=== PATIENT | male | born 1955 | race Caucasian/White ===

== ENCOUNTER 2016-07-31 09:25 | Emergency (ER) | payer OTHER, MEDICAID ==
[~2016-07-31] VITALS: Ht 177.8 cm; Wt 88.0 kg
[~2016-07-31 09:25] MED LIST: AMLO2.5T PO; ATOR10TA15 PO; DILT31TA PO; LOSA25TA PO; TRAM50TA PO
[2016-07-31 09:31] VITALS: BP 158/95; PULSE 91; RESP 16; TEMP 98.7; O2SAT 95
[2016-07-31] MEDS ORDERED: CARV12.52 PO (09:57)
[2016-07-31] MEDS ORDERED: MORPHINE SULFATE 4 MG/ML INJ IM ONE (10:15)
[2016-07-31] MEDS ORDERED: LORazepam 2 MG/ML VIAL IM ONE (10:15)
[2016-07-31] MEDS ORDERED: PRED10PA2 PO (10:16)
--- NOTE | 2016-07-31 10:16 | PD ---
HPI . Diffuse chronic pain Chief Complaint: Back/ Neck Pain or Injury Time Seen by Provider: 09:50 Travel History International Travel<30 days: No Contact w/Intl Traveler<30days: No Traveled to known affect area: No History of Present Illness HPI Patient presents with ongoing neck, back, hip, knee and hand pain. Patient reports that he is followed both by his primary care physician and by the pain clinic for same. He states that he was seen in the pain clinic sometime after May 25 and given some injections. He states that he is worse rather than better. He states that he called them to report ongoing and worsening pain and that they instructed him to come to the emergency department for treatment. He denies any acute injury and he denies any acutely worsening symptoms. He does not complain of incontinence or radicular type pain. He has not been running fevers. Patient reports that he takes tramadol 50 mg twice a day for pain and has been taking this for about 30 years. He states that he has been told not to take nonsteroidal anti-inflammatory agents because of his age. [facility] Past Medical History Anemia: Yes Arthritis: Yes Asthma: No Autoimmune Disease: No Blood Disorders: No Anxiety: No Depression: Yes Heart Rhythm Problems: No Cardiovascular Problems: No High Cholesterol: Yes Chemotherapy: No Chest Pain: No Congestive Heart Failure: No COPD: No Cerebrovascular Accident: No Dementia: Yes Diabetes: No Diminished Hearing: No Gastrointestinal Disorders: No GERD: No Glaucoma: No Headaches: No Hepatitis: No Hiatal Hernia: No Hypertension: Yes Kidney Stones: No Musculoskeletal: Yes (sciatica) Neurologic: No Psychiatric: Yes (ETOH ABUSE, DEPRESSION ( by hx )) Reproductive: No Respiratory: No Immunizations Current: Yes Myocardial Infarction: No Radiation Therapy: No Renal Failure: No Seizures: No Sickle Cell Disease: No Sleep Apnea: No Thyroid Disease: No Triglycerides - High: Yes Ulcer: No Tetanus Vaccination: > 5 Years Past Surgical History Abdominal Surgery: No AICD: No Cardiac Surgery: No Ear Surgery: No Endocrine Surgery: No Eye Surgery: No Genitourinary Surgery: No Gynecologic Surgery: No Neurologic Surgery: No Oral Surgery: Yes Pacemaker: No Thoracic Surgery: No Other Surgery: No Social History Alcohol Use: Yes (LIQUOR, SEVERAL DAYS/WEEK) Tobacco Use: No (QUIT 2010) Substance Use: No (HX OPIATES, etoh by hx ) Allergies-Medications (Allergen,Severity, Reaction): Coded Allergies: Aspirin (Verified Adverse Reaction, Severe, gi upset, 07/31/16) Daypro (Verified Adverse Reaction, Severe, gi upset, 07/31/16) Reported Meds & Prescriptions Reported Meds & Active Scripts Active Prednisone (48) 10 mg tab Dose Pack (Prednisone) 10 Mg Dspk 10 Mg PO DIRECTED Reported Carvedilol 12.5 Mg Tab 12.5 Mg PO BID Atorvastatin (Atorvastatin Calcium) 10 Mg Tab 40 Mg PO HS Tramadol (Tramadol HCl) 50 Mg Tab 50 Mg PO Q6H PRN Losartan (Losartan Potassium) 25 Mg Tab 12.5 Mg PO DAILY Amlodipine (Amlodipine Besylate) 2.5 Mg Tab 2.5 Mg PO DAILY Review of Systems Except as stated in HPI: all other systems reviewed are Neg Musculoskeletal: Positive: Myalgias, Arthralgias, Limited ROM, Cramping Neurologic: No: Weakness, Paresthesia, Incontinence Physical Exam Narrative GENERAL: This is a 60-year-old man who appears his stated age. He appears to be moving his arms and legs without much difficulty. SKIN: Warm and dry. HEAD: Atraumatic. Normocephalic. EYES: Pupils equal and round. ENT: No nasal bleeding or discharge. Mucous membranes pink and moist. NECK: Trachea midline. CARDIOVASCULAR: Regular rate and rhythm. RESPIRATORY: No accessory muscle use. GASTROINTESTINAL: Abdomen soft, non-tender, nondistended. MUSCULOSKELETAL: No obvious deformities. No edema. Diffuse tenderness to palpation of his upper and lower back. Tenderness in his hips and knees. Tender in his hands. He has no redness or warmth or swelling of any of his joints. NEUROLOGICAL: Awake and alert. No obvious cranial nerve deficits. Motor grossly within normal limits. Normal speech. PSYCHIATRIC: Appropriate mood and affect; insight and judgment normal. Data Data Last Documented VS Vital Signs Date Time Temp Pulse Resp B/P Pulse Ox O2 Delivery O2 Flow Rate FiO2 07/31/16 09:31 98.7 91 16 158/95 95 Orders Morphine Inj (Morphine Inj) (07/31/16 10:15) Lorazepam Inj (Ativan Inj) (07/31/16 10:15) [facility] Medical Decision Making Medical Screen Exam Complete: Yes Emergency Medical Condition: Yes Medical Record Reviewed: Yes (the patient was seen here on May 25 and diagnosed with lumbar radiculopathy. He was treated with tramadol. The patient has also been seen here in the past for alcohol abuse and opiate abuse.) Differential Diagnosis My differential diagnosis of chronic pain includes but is not limited to arthritis, lumbar stenosis, degenerative disc disease, connective tissue disorder, malingering, drug-seeking. Narrative Course Patient presents for treatment of chronic pain. He has no worrisome symptoms for an acute disorder such as epidural abscess, septic arthritis, cauda equina. I will give him a single dose of morphine and Ativan here and discharge him on prednisone. He should follow up with his primary care provider or the pain clinic for ongoing treatment of his chronic pain. Diagnosis Primary Impression: Chronic pain Qualified Code: G89.4 - Chronic pain syndrome Patient Instructions: Chronic Back Pain (ED), General Instructions, Narcotic given in the ED Additional Instructions: See your primary care provider or pain clinic for ongoing treatment of your chronic pain. Med/Other Pt SpecificInfo: Prescription(s) given Scripts Prednisone (48) 10 mg tab Dose Pack 10 Mg Dspk10 Mg PO DIRECTED #1 DSPK Ref 0 Prov:Sophie Augustine MD 07/31/16 Disposition: 01 DISCHARGE HOME Condition: Stable Sophie Augustine MD Jul 31, 2016 10:16
[2016-07-31 10:46] VITALS: BP 142/90
== END 2016-07-31 10:48 | disposition home or self-care (01) ==
LOC: PHED 09:25
DX: G89.4 Chronic pain syndrome (principal); D64.9 Anemia, unspecified; M19.90 Unspecified osteoarthritis, unspecified site; F32.9 Major depressive disorder, single episode, unspecified; E78.00 Pure hypercholesterolemia, unspecified; F03.90 Unspecified dementia, unspecified severity, without behavioral disturbance, psychotic disturbance, mood disturbance, and anxiety; I10 Essential (primary) hypertension; F10.20 Alcohol dependence, uncomplicated; F19.21 Other psychoactive substance dependence, in remission; Z87.891 Personal history of nicotine dependence
CPT/HCPCS: 96372; 99283; J2060; J2270

== ENCOUNTER 2016-08-16 12:56 | Emergency (ER) | payer OTHER, MEDICAID ==
[~2016-08-16] VITALS: Ht 177.8 cm; Wt 90.0 kg
[~2016-08-16 12:56] MED LIST changes: +CARV12.52 PO; -DILT31TA PO; +PRED10PA2 PO
[2016-08-16 13:08] VITALS: BP 135/81; PULSE 96; RESP 16; TEMP 98.2; O2SAT 95
--- NOTE | 2016-08-16 14:48 | PD ---
HPI Chief Complaint: left arm and left leg tingling Time Seen by Provider: 14:48 Travel History International Travel<30 days: No Contact w/Intl Traveler<30days: No Traveled to known affect area: No History of Present Illness HPI 60-year-old male came to the emergency room with history of left arm and left leg tingling. Patient has history of significant cervical and lumbar disc disease and arthritis. Patient says that he has been getting intrathecal shots from pain management for his arthritis and back pain. No history of trauma. This morning he woke up with this tingling down his left upper extremity and left lower extremity. He is also complaining of pain along the left shoulder blade area and mid back. No history of bowel or bladder incontinence. [facility] Past Medical History Narrative Medical List of his past medical, social and family history as reviewed from the nursing note. Anemia: Yes Arthritis: Yes Asthma: No Autoimmune Disease: No Blood Disorders: No Anxiety: No Depression: Yes Heart Rhythm Problems: No Cardiovascular Problems: No High Cholesterol: Yes Chemotherapy: No Chest Pain: No Congestive Heart Failure: No COPD: No Cerebrovascular Accident: No Dementia: Yes Diabetes: No Diminished Hearing: No Gastrointestinal Disorders: No GERD: No Glaucoma: No Headaches: No Hepatitis: No Hiatal Hernia: No Hypertension: Yes Kidney Stones: No Musculoskeletal: Yes (sciatica) Neurologic: No Psychiatric: Yes (ETOH ABUSE, DEPRESSION ( by hx )) Reproductive: No Respiratory: No Immunizations Current: Yes Myocardial Infarction: No Radiation Therapy: No Renal Failure: No Seizures: No Sickle Cell Disease: No Sleep Apnea: No Thyroid Disease: No Triglycerides - High: Yes Ulcer: No Past Surgical History Abdominal Surgery: No AICD: No Cardiac Surgery: No Ear Surgery: No Endocrine Surgery: No Eye Surgery: No Genitourinary Surgery: No Gynecologic Surgery: No Neurologic Surgery: No Oral Surgery: Yes Pacemaker: No Thoracic Surgery: No Other Surgery: No Social History Alcohol Use: Yes (LIQUOR, SEVERAL DAYS/WEEK) Tobacco Use: No (QUIT 2010) Substance Use: No (HX OPIATES, etoh by hx ) Allergies-Medications (Allergen,Severity, Reaction): Coded Allergies: Aspirin (Verified Adverse Reaction, Severe, GI upset, 08/16/16) Daypro (Verified Adverse Reaction, Severe, GI upset, 08/16/16) Comments List of his allergies reviewed from the nursing note. Reported Meds & Prescriptions Reported Meds & Active Scripts Active Prednisone (48) 10 mg tab Dose Pack (Prednisone) 10 Mg Dspk 10 Mg PO DIRECTED Reported Carvedilol 12.5 Mg Tab 12.5 Mg PO BID Atorvastatin (Atorvastatin Calcium) 10 Mg Tab 40 Mg PO HS Tramadol (Tramadol HCl) 50 Mg Tab 50 Mg PO Q6H PRN Losartan (Losartan Potassium) 25 Mg Tab 12.5 Mg PO DAILY Amlodipine (Amlodipine Besylate) 2.5 Mg Tab 2.5 Mg PO DAILY Narrative Medication List of his home medications reviewed from the nursing note. Review of Systems Except as stated in HPI: all other systems reviewed are Neg Physical Exam Narrative GENERAL: Awake, alert, moderate distress SKIN: Warm and dry. HEAD: Atraumatic. Normocephalic. EYES: Pupils equal and round. No scleral icterus. No injection or drainage. ENT: No nasal bleeding or discharge. Mucous membranes pink and moist. NECK: Trachea midline. No JVD. CARDIOVASCULAR: Regular rate and rhythm. No murmur appreciated. RESPIRATORY: No accessory muscle use. Clear to auscultation. Breath sounds equal bilaterally. GASTROINTESTINAL: Abdomen soft, non-tender, nondistended. Hepatic and splenic margins not palpable. MUSCULOSKELETAL: No obvious deformities. No clubbing. No cyanosis. No edema. Tender around the medial scapular border. NEUROLOGICAL: Awake and alert. No obvious cranial nerve deficits. Motor grossly within normal limits. Normal speech. NIH stroke score of 0 PSYCHIATRIC: Appropriate mood and affect; insight and judgment normal. Data Data Last Documented VS Orders Mri C Spine W/O Contrast (08/16/16 ) Mri T Spine W/O Contrast (08/16/16 ) Sodium Chloride 0.9% Flush (Ns Flush) (08/16/16 15:30) Morphine Inj (Morphine Inj) (08/16/16 15:30) [facility] Medical Decision Making Medical Screen Exam Complete: Yes Emergency Medical Condition: Yes Medical Record Reviewed: Yes Differential Diagnosis Cervical radiculopathy, thoracic radiculopathy, musculoskeletal pain Narrative Course 2:44 PM MRI of the cervical spine and thoracic spine was ordered. Awaiting for the test to be done and resulted. Case will be signed over to the oncoming ER physician. Procedures EKG Prior to Arrival: Alex Prakash MD Aug 16, 2016 14:48 Narrative Course 2:44 PM MRI of the cervical spine and thoracic spine was ordered. Awaiting for the test to be done and resulted. Case will be signed over to the oncoming ER physician. Alex Quintero MD Aug 16, 2016 14:48
[2016-08-16 14:55] VITALS: BP 162/89; PULSE 85; RESP 16; O2SAT 97
[2016-08-16] MEDS ORDERED: MORPHINE SULFATE 4 MG/ML INJ IV PUSH ONE (15:30)
[2016-08-16] MEDS ORDERED: SODIUM CHLORIDE 0.9% FLUSH 5 ML FLUSH IVF PRN (15:30)
--- NOTE | 2016-08-16 17:24 | RADHPO ---
EXAM DATE/TIME: 08/16/2016 16:43 [facility] COMPARISON: No previous studies available for comparison. INDICATIONS : Left upper extremity numbness. MEDICAL HISTORY : Hypertension. Hypercholesterolemia. Osteoarthritis. SURGICAL HISTORY : None. ENCOUNTER: Initial ACUITY: 1 day PAIN SCORE: 5/10 LOCATION: Back TECHNIQUE: Multiplanar, multisequence MRI examination of the cervical spine was performed. FINDINGS: VERTEBRAE: Normal vertebral body height. Homogeneous marrow signal. ALIGNMENT: No evidence of subluxation. CORD: Normal configuration and signal. POST FOSSA: The cerebellar tonsils are normal in position. C2-C3: The thecal sac has a normal configuration. There is no evidence of disc herniation or spinal canal s tenosis. The neural foramina are patent bilaterally. C3-C4: Mild asymmetrically left-sided uncovertebral osteophyte spurring with trailing disc protrusion. This produces mild asymmetrically left-sided foraminal narrowing. C4-C5: Minimal undulating dorsal disc protrusion most prominent centrally with slight indentation of the veroinca tral thecal sac. Foramina appear adequate. C5-C6: Tiny left paracentral disc protrusion slightly effacing left lateral recess. C6-C7: The thecal sac has a normal configuration. There is no evidence of disc herniation or spinal canal s tenosis. The neural foramina are patent bilaterally. C7-T1: The thecal sac has a normal configuration. There is no evidence of disc herniation or spinal canal s tenosis. The neural foramina are patent bilaterally. CONCLUSION: Mild disc disease changes and bony spondylosis at the C3-4, C4-5 and C5-6 levels slightly asymmetric to the left as described. Beau Whitfield MD on August 16, 2016 at 17:16 Board Certified Radiologist. This report was verified electronically.
--- NOTE | 2016-08-16 17:26 | RADHPO ---
EXAM DATE/TIME: 08/16/2016 16:43 [facility] COMPARISON: No previous studies available for comparison. INDICATIONS : Left upper extremity numbness. MEDICAL HISTORY : Hypertension. Hypercholesterolemia. Osteoarthritis. SURGICAL HISTORY : None. ENCOUNTER: Initial ACUITY: 1 day PAIN SCORE: 5/10 LOCATION: neck TECHNIQUE: Multiplanar multisequence MRI of the thoracic spine was performed. FINDINGS: VERTEBRA: Normal vertebral body height. Homogeneous marrow signal. ALIGNMENT: Normal. CORD: Normal position and configuration. T1-T2: Normal. T2-T3: The thecal sac has a normal diameter. No evidence of disc bulge or protrusion. T3-T4: The thecal sac has a normal diameter. No evidence of disc bulge or protrusion. T4-T5: The thecal sac has a normal diameter. No evidence of disc bulge or protrusion. T5-T6: The thecal sac has a normal diameter. No evidence of disc bulge or protrusion. T6-T7: The thecal sac has a normal diameter. No evidence of disc bulge or protrusion. T7-T8: The thecal sac has a normal diameter. No evidence of disc bulge or protrusion. T8-T9: Tiny central to minimally left paracentral disc protrusion minimally indenting ventral thecal sac. No canal or foraminal compromise. T9-T10: The thecal sac has a normal diameter. No evidence of disc bulge or protrusion. T10-T11: The thecal sac has a normal diameter. No evidence of disc bulge or protrusion. T11-T12: The thecal sac has a normal diameter. No evidence of disc bulge or protrusion. T12-L1: The thecal sac has a normal diameter. No evidence of disc bulge or protrusion. CONCLUSION: Miniscule disc protrusion at T8-9. Otherwise unremarkable Beau Whitfield MD on August 16, 2016 at 17:23 Board Certified Radiologist. This report was verified electronically.
[2016-08-16 17:45] VITALS: BP 178/97; PULSE 80; RESP 16; O2SAT 96
--- NOTE | 2016-08-16 17:51 | PD ---
Physical Exam Date Seen by Provider: Aug 16, 2016 Time Seen by Provider: 17:50 Narrative This 60-year-old male had presented with complaint of numbness in his left arm. He has a history of chronic neck pain and is going to pain management for treatment of neck pain. He was seen by Dr. Soler who ordered an MRI of the cervical spine and thoracic spine. These tests have been done and showed degenerative disease. The patient has tramadol for pain. He is stable for discharge Data Data Last Documented VS Vital Signs Date Time Temp Pulse Resp B/P Pulse Ox O2 Delivery O2 Flow Rate FiO2 08/16/16 17:45 80 16 178/97 96 Room Air 08/16/16 13:08 98.2 Orders Mri C Spine W/O Contrast (08/16/16 ) Mri T Spine W/O Contrast (08/16/16 ) Sodium Chloride 0.9% Flush (Ns Flush) (08/16/16 15:30) Morphine Inj (Morphine Inj) (08/16/16 15:30) MDM Medical Record Reviewed: Yes Supervised Visit with EDU: No Differential Diagnosis Differential includes radiculopathy, myelopathy Narrative Course Did not show any evidence of myelopathy Diagnosis Primary Impression: Cervical radiculopathy Patient Instructions: General Instructions Departure Forms: Tests/Procedures Disposition: DISCHARGE HOME Condition: Stable Anthony Jain MD Aug 16, 2016 17:51
== END 2016-08-16 17:55 | disposition home or self-care (01) ==
LOC: PHED 12:56
DX: M54.12 Radiculopathy, cervical region (principal)
CPT/HCPCS: 72141; 72146

== ENCOUNTER 2016-12-22 09:01 | Emergency (ER) | payer MEDICAID, OTHER ==
[~2016-12-22] VITALS: Ht 177.8 cm; Wt 88.0 kg
[2016-12-22 09:04] VITALS: BP 132/93; PULSE 89; RESP 18; TEMP 98.2; O2SAT 94
[2016-12-22] MEDS ORDERED: ACYC-101 PO (09:42)
[2016-12-22] MEDS ORDERED: GABA300C5 PO (09:42)
--- NOTE | 2016-12-22 09:42 | PD ---
HPI Chief Complaint: Headache Time Seen by Provider: 09:24 Travel History International Travel<30 days: No Contact w/Intl Traveler<30days: No Traveled to known affect area: No History of Present Illness HPI 61-year-old male complaining of painful rash on the forehead and pain behind the left ear and left upper neck. Patient states that the rash started a week ago with some intermittent pain to the forehead. Patient started having more increasing pain behind the left ear and left upper neck for the past several days. Patient denies any visual change. Patient denies any eye pain. Patient denies any nausea vomiting. Patient states that he has recurrent painful rash on the forehead in the past. Patient states the pain is burning pain shooting pain started the neck good radial to left side of the head. PFSH Past Medical History Anemia: Yes Arthritis: Yes Asthma: No Autoimmune Disease: No Blood Disorders: No Anxiety: No Depression: Yes Heart Rhythm Problems: No Cardiovascular Problems: Yes High Cholesterol: Yes Chemotherapy: No Chest Pain: No Congestive Heart Failure: No COPD: No Cerebrovascular Accident: No Dementia: Yes Diabetes: No Diminished Hearing: No Gastrointestinal Disorders: No GERD: No Glaucoma: No Headaches: Yes Hepatitis: No Hiatal Hernia: No Hypertension: Yes Kidney Stones: No Musculoskeletal: Yes (Sciatica) Neurologic: No Psychiatric: Yes (Hx ETOH abuse) Reproductive: No Respiratory: No Immunizations Current: Yes Myocardial Infarction: No Radiation Therapy: No Renal Failure: No Seizures: No Sickle Cell Disease: No Sleep Apnea: No Thyroid Disease: No Triglycerides - High: Yes Ulcer: No Influenza Vaccination: Yes Past Surgical History Abdominal Surgery: No AICD: No Cardiac Surgery: No Ear Surgery: No Endocrine Surgery: No Eye Surgery: No Genitourinary Surgery: No Gynecologic Surgery: No Neurologic Surgery: No Oral Surgery: Yes Pacemaker: No Thoracic Surgery: No Other Surgery: No Social History Alcohol Use: Yes (daily) Tobacco Use: No Substance Use: No (HX OPIATES, etoh by hx ) Allergies-Medications (Allergen,Severity, Reaction): Coded Allergies: Aspirin (Verified Adverse Reaction, Severe, GI upset, 12/22/16) Daypro (Verified Adverse Reaction, Severe, GI upset, 12/22/16) Reported Meds & Prescriptions Reported Meds & Active Scripts Active Reported Carvedilol 12.5 Mg Tab 12.5 Mg PO BID Atorvastatin (Atorvastatin Calcium) 10 Mg Tab 40 Mg PO HS Tramadol (Tramadol HCl) 50 Mg Tab 50 Mg PO Q6H PRN Losartan (Losartan Potassium) 25 Mg Tab 12.5 Mg PO DAILY Amlodipine (Amlodipine Besylate) 2.5 Mg Tab 2.5 Mg PO DAILY Review of Systems General / Constitutional: No: Fever Eyes: No: Visual changes HENT: No: Headaches Cardiovascular: No: Chest Pain or Discomfort Respiratory: No: Shortness of Breath Gastrointestinal: No: Abdominal Pain Genitourinary: No: Dysuria Musculoskeletal: No: Pain Skin: No Rash Neurologic: No: Weakness Psychiatric: No: Depression Endocrine: No: Polydipsia Hematologic/Lymphatic: No: Easy Bruising Physical Exam Narrative GENERAL: Well-nourished, well-developed patient. SKIN: Focused skin assessment warm/dry. HEAD: Normocephalic. EYES: No scleral icterus. No injection or drainage. NECK: Supple, trachea midline. No JVD or lymphadenopathy. CARDIOVASCULAR: Regular rate and rhythm without murmurs, gallops, or rubs. RESPIRATORY: Breath sounds equal bilaterally. No accessory muscle use. GASTROINTESTINAL: Abdomen soft, non-tender, nondistended. MUSCULOSKELETAL: No cyanosis, or edema. BACK: Nontender without obvious deformity. No CVA tenderness. Patient has blistering type rash on the left forehead. Mild tenderness on palpation left side left upper neck area behind the left ear. No redness no heat noted on the left side of the neck. Data Data Last Documented VS Vital Signs Date Time Temp Pulse Resp B/P Pulse Ox O2 Delivery O2 Flow Rate FiO2 12/22/16 09:04 98.2 89 18 132/93 94 MDM Medical Decision Making Medical Screen Exam Complete: Yes Emergency Medical Condition: Yes Differential Diagnosis Differential diagnosis including shingles, cellulitis, folliculitis. Narrative Course 61-year-old male with painful rash on the forehead and pain and left-sided neck and the scalp. Diagnosis Primary Impression: Shingles Qualified Code: B02.9 - Herpes zoster without complication Patient Instructions: General Instructions Additional Instructions: Take medications as directed. Follow-up with personal physician. Return if worse. Med/Other Pt SpecificInfo: Prescription(s) given Scripts Acyclovir (Zovirax)800 Mg [id number] Mg PO 5 TIMES A DAY #35 TAB Ref 0 Prov:Gopal Henderson MD 12/22/16 Gabapentin 300 Mg [id number] Mg PO TID #60 CAP Ref 0 Prov:Gopal Henderson MD 12/22/16 Disposition: 01 DISCHARGE HOME Condition: Stable Gopal Henderson MD Dec 22, 2016 09:42
== END 2016-12-22 10:05 | disposition home or self-care (01) ==
LOC: PHED 09:01
DX: B02.9 Zoster without complications (principal); M54.2 Cervicalgia; R51 Headache; I10 Essential (primary) hypertension; E78.5 Hyperlipidemia, unspecified; F03.90 Unspecified dementia, unspecified severity, without behavioral disturbance, psychotic disturbance, mood disturbance, and anxiety; Z86.2 Personal history of diseases of the blood and blood-forming organs and certain disorders involving the immune mechanism; Z87.39 Personal history of other diseases of the musculoskeletal system and connective tissue; Z86.59 Personal history of other mental and behavioral disorders; Z86.79 Personal history of other diseases of the circulatory system
CPT/HCPCS: 99284

== ENCOUNTER 2017-01-09 11:53 | Emergency (ER) | payer OTHER ==
[~2017-01-09] VITALS: Ht 177.8 cm; Wt 90.0 kg
[~2017-01-09 11:53] MED LIST changes: +ACYC-101 PO; +GABA300C5 PO; -PRED10PA2 PO
[2017-01-09 11:54] VITALS: BP 142/75; PULSE 78; RESP 20; TEMP 98.6; O2SAT 93
--- NOTE | 2017-01-09 12:07 | PD ---
Physical Exam Time Seen by Provider: 12:05 Narrative 61 y/o male here for evaluation of depression, sent here by Dr. Quintanilla. Vital signs reviewed. Seen at triage desk. Awaiting bed placement. Data Data Last Documented VS Vital Signs Date Time Temp Pulse Resp B/P Pulse Ox O2 Delivery O2 Flow Rate FiO2 01/09/17 11:54 98.6 78 20 142/75 93 Room Air MDM Medical Record Reviewed: Yes Supervised Visit with EDU: Matias Bello Jan 09, 2017 12:07
--- NOTE | 2017-01-09 12:37 | PD ---
HPI Chief Complaint: Psychiatric Symptoms Time Seen by Provider: 12:37 Travel History International Travel<30 days: No Contact w/Intl Traveler<30days: No Traveled to known affect area: No History of Present Illness HPI 61-year-old male with history of depression, hypertension, arthritis, hypercholesterolemia, alcohol dependency, presents to the emergency department at the instruction of Dr. Quintanilla, his psychiatrist's. Per report, he was seen this morning by Dr. Quintanilla and is referred here for inpatient evaluation for his depression. Patient is at risk of detox. Patient tells me he has not had any alcohol in 3 days. Denies any suicidal homicidal ideations. States that he has been depressed. Denies any acute medical needs. States that he is currently has shingles outbreak on his forehead. Denies symptoms at this time. PFSH Past Medical History Anemia: Yes Arthritis: Yes Asthma: No Autoimmune Disease: No Blood Disorders: No Anxiety: No Depression: Yes Heart Rhythm Problems: No Cardiovascular Problems: Yes High Cholesterol: Yes Chemotherapy: No Chest Pain: No Congestive Heart Failure: No COPD: No Cerebrovascular Accident: No Dementia: Yes Diabetes: No Diminished Hearing: No Gastrointestinal Disorders: No GERD: No Glaucoma: No Headaches: Yes Hepatitis: No Hiatal Hernia: No Hypertension: Yes Kidney Stones: No Medical other: Yes (ALCOHOLISM) Musculoskeletal: Yes (Sciatica) Neurologic: No Psychiatric: Yes (Hx ETOH abuse) Reproductive: No Respiratory: No Immunizations Current: Yes Myocardial Infarction: No Radiation Therapy: No Renal Failure: No Seizures: No Sickle Cell Disease: No Sleep Apnea: No Thyroid Disease: No Triglycerides - High: Yes Ulcer: No Tetanus Vaccination: > 5 Years Influenza Vaccination: Yes Past Surgical History Abdominal Surgery: No AICD: No Cardiac Surgery: No Ear Surgery: No Endocrine Surgery: No Eye Surgery: No Genitourinary Surgery: No Gynecologic Surgery: No Neurologic Surgery: No Oral Surgery: Yes Pacemaker: No Thoracic Surgery: No Other Surgery: No Social History Alcohol Use: Yes (daily) Tobacco Use: Yes Substance Use: No (HX OPIATES, etoh by hx ) Allergies-Medications (Allergen,Severity, Reaction): Coded Allergies: Aspirin (Verified Adverse Reaction, Severe, GI upset, 01/09/17) Daypro (Verified Adverse Reaction, Severe, GI upset, 01/09/17) Reported Meds & Prescriptions Reported Meds & Active Scripts Active Gabapentin 300 Mg Cap 300 Mg PO TID Reported Carvedilol 12.5 Mg Tab 12.5 Mg PO BID Atorvastatin (Atorvastatin Calcium) 10 Mg Tab 40 Mg PO HS Losartan (Losartan Potassium) 25 Mg Tab 12.5 Mg PO DAILY Amlodipine (Amlodipine Besylate) 2.5 Mg Tab 2.5 Mg PO DAILY Review of Systems Except as stated in HPI: all other systems reviewed are Neg Physical Exam Narrative GENERAL: Well-nourished male patient, in no acute distress SKIN: Focused skin assessment warm/dry. Was released and lesions with erythematous base of the left forehead in a dermatomal pattern. HEAD: Normocephalic. EYES: Pupils equal and round. No scleral icterus. No injection or drainage. ENT: No nasal bleeding or discharge. Mucous membranes pink and moist. NECK: Trachea midline. No JVD. CARDIOVASCULAR: Regular rate and rhythm. No murmur appreciated. RESPIRATORY: No accessory muscle use. Clear to auscultation. Breath sounds equal bilaterally. GASTROINTESTINAL: Abdomen soft, non-tender, nondistended. Hepatic and splenic margins not palpable. MUSCULOSKELETAL: No obvious deformities. No clubbing. No cyanosis. No edema. NEUROLOGICAL: Awake and alert. No obvious cranial nerve deficits. Motor grossly within normal limits. Normal speech. Data Data Last Documented VS Vital Signs Date Time Temp Pulse Resp B/P Pulse Ox O2 Delivery O2 Flow Rate FiO2 01/09/17 12:27 77 18 01/09/17 11:54 98.6 142/75 93 Room Air Orders Complete Blood Count With Diff (01/09/17 12:42) Basic Metabolic Panel (Bmp) (01/09/17 12:42) Psych Screen (01/09/17 12:42) Drug Screen, Random Urine (01/09/17 12:42) Alcohol (Ethanol) (01/09/17 12:42) Ct Brain W/O Iv Contrast(Rout) (01/09/17 ) Alcohol Withdrawal Asmt-Ciwa [id number] (01/09/17 14:14) Flumazenil Inj (Romazicon Inj) (01/09/17 14:15) Lorazepam (Ativan) (01/09/17 14:15) Lorazepam Inj (Ativan Inj) (01/09/17 14:15) Lorazepam (Ativan) (01/09/17 14:15) Lorazepam Inj (Ativan Inj) (01/09/17 14:15) Lorazepam Inj (Ativan Inj) (01/09/17 14:15) Lorazepam Inj (Ativan Inj) (01/09/17 14:15) Labs Laboratory Tests Test 01/09/17 12:50 White Blood Count 9.1 TH/MM3 Red Blood Count 4.51 MIL/MM3 Hemoglobin 12.2 GM/DL Hematocrit 38.4 % Mean Corpuscular Volume 85.1 FL Mean Corpuscular Hemoglobin 27.2 PG Mean Corpuscular Hemoglobin 31.9 % Concent Red Cell Distribution Width 15.1 % Platelet Count 229 TH/MM3 Mean Platelet Volume 8.7 FL Neutrophils (%) (Auto) 73.9 % Lymphocytes (%) (Auto) 16.8 % Monocytes (%) (Auto) 7.4 % Eosinophils (%) (Auto) 0.5 % Basophils (%) (Auto) 1.4 % Neutrophils # (Auto) 6.7 TH/MM3 Lymphocytes # (Auto) 1.5 TH/MM3 Monocytes # (Auto) 0.7 TH/MM3 Eosinophils # (Auto) 0.0 TH/MM3 Basophils # (Auto) 0.1 TH/MM3 CBC Comment DIFF FINAL Differential Comment Sodium Level 141 MEQ/L Potassium Level 4.0 MEQ/L Chloride Level 106 MEQ/L Carbon Dioxide Level 24.3 MEQ/L Anion Gap 11 MEQ/L Blood Urea Nitrogen 21 MG/DL Creatinine 1.12 MG/DL Estimat Glomerular Filtration 67 ML/MIN Rate Random Glucose 86 MG/DL Calcium Level 8.9 MG/DL Urine Opiates Screen NEG Urine Barbiturates Screen NEG Urine Amphetamines Screen NEG Urine Benzodiazepines Screen NEG Urine Cocaine Screen NEG Urine Cannabinoids Screen NEG Ethyl Alcohol Level 111 MG/DL [facility] Medical Decision Making Medical Screen Exam Complete: Yes Emergency Medical Condition: Yes Medical Record Reviewed: Yes Differential Diagnosis Mood disorder versus substance-induced mood disorder versus alcohol dependency versus withdrawal versus personality disorder Narrative Course 61-year-old male presents to emergency department for evaluation at the instruction of Dr. Quintanilla his psychiatrist. Dr. Quintanilla called and gave report and recommends Weinstein acted the patient opts to leave however patient is willing to stay at this time. States that he does need help. He has been increasingly depressed. Denies any alcohol use however patient's alcohol level today is 111. Laboratory Tests Test 01/09/17 12:50 White Blood Count 9.1 TH/MM3 Red Blood Count 4.51 MIL/MM3 Hemoglobin 12.2 GM/DL Hematocrit 38.4 % Mean Corpuscular Volume 85.1 FL Mean Corpuscular Hemoglobin 27.2 PG Mean Corpuscular Hemoglobin 31.9 % Concent Red Cell Distribution Width 15.1 % Platelet Count 229 TH/MM3 Mean Platelet Volume 8.7 FL Neutrophils (%) (Auto) 73.9 % Lymphocytes (%) (Auto) 16.8 % Monocytes (%) (Auto) 7.4 % Eosinophils (%) (Auto) 0.5 % Basophils (%) (Auto) 1.4 % Neutrophils # (Auto) 6.7 TH/MM3 Lymphocytes # (Auto) 1.5 TH/MM3 Monocytes # (Auto) 0.7 TH/MM3 Eosinophils # (Auto) 0.0 TH/MM3 Basophils # (Auto) 0.1 TH/MM3 CBC Comment DIFF FINAL Differential Comment Sodium Level 141 MEQ/L Potassium Level 4.0 MEQ/L Chloride Level 106 MEQ/L Carbon Dioxide Level 24.3 MEQ/L Anion Gap 11 MEQ/L Blood Urea Nitrogen 21 MG/DL Creatinine 1.12 MG/DL Estimat Glomerular Filtration 67 ML/MIN Rate Random Glucose 86 MG/DL Calcium Level 8.9 MG/DL Urine Opiates Screen NEG Urine Barbiturates Screen NEG Urine Amphetamines Screen NEG Urine Benzodiazepines Screen NEG Urine Cocaine Screen NEG Urine Cannabinoids Screen NEG Ethyl Alcohol Level 111 MG/DL Other lab work is without acute concern. Patient is medically cleared to undergo psychiatric screening for further evaluation and disposition. Mental health screening discussed with the patient. Psychiatric screen ordered. Diagnosis Primary Impression: Alcohol abuse Additional Impressions: Substance induced mood disorder Shingles Qualified Code: B02.9 - Herpes zoster without complication Condition: Stable Dorcas Malagon Jan 09, 2017 12:37
[2017-01-09 13:20] LABS: AUTOMATED NEUTROPHIL # 6.7 TH/MM3 (1.8-7.7); BASOPHIL # 0.1 TH/MM3 (0-0.2); BASOPHIL % 1.4 % (0.0-2.0); EOSINOPHIL % 0.5 % (0.0-4.0); HEMATOCRIT 38.4 % (39.0-51.0); HEMO FLAGS DIFF FINAL; LYMPH % 16.8 % (9.0-44.0); LYMPHOCYTE # 1.5 TH/MM3 (1.0-4.8); MEAN CELL VOLUME 85.1 FL (80.0-100.0); MEAN CORPUSCULAR HEMOGLOBIN 27.2 PG (27.0-34.0); MEAN CORPUSCULAR HGB CONC 31.9 % (32.0-36.0); MONO % 7.4 % (0.0-8.0); NEUT % 73.9 % (16.0-70.0); PLATELET COUNT 229 TH/MM3 (150-450); RED BLOOD COUNT 4.51 MIL/MM3 (4.50-5.90); RED CELL DISTRIBUTION WIDTH 15.1 % (11.6-17.2); WHITE BLOOD COUNT 9.1 TH/MM3 (4.0-11.0)
[2017-01-09 13:28] LABS: AMPHETAMINE, URINE NEG (NEG); BARBITURATES, URINE NEG (NEG); COCAINE, URINE NEG (NEG)
[2017-01-09 13:34] LABS: BICARBONATE 24.3 MEQ/L (21.0-32.0)
[2017-01-09] MEDS ORDERED: FLUMAZENIL 0.5 MG/5 ML VIAL IV PUSH PRN (14:15)
[2017-01-09] MEDS ORDERED: LORazepam 1 MG TAB PO PRN (14:15)
[2017-01-09] MEDS ORDERED: LORazepam 2 MG/ML VIAL IV PUSH PRN ×4 (14:15)
--- NOTE | 2017-01-09 15:07 | RADRPT ---
EXAM DATE/TIME: 01/09/2017 14:57 [facility] COMPARISON: No previous studies available for comparison. INDICATIONS : Altered mental status, fall, contusion left forehead RADIATION DOSE: 36.45 CTDIvol (mGy) MEDICAL HISTORY : Dementia. Cardiovascular disease Hypertension. SURGICAL HISTORY : None. ENCOUNTER: Initial ACUITY: 1 day PAIN SCALE: 0/10 LOCATION: cranial TECHNIQUE: Multiple contiguous axial images were obtained of the head. Using automated exposure control and adj ustment of the mA and/or kV according to patient size, radiation dose was kept as low as reasonably a chievable to obtain optimal diagnostic quality images. DICOM format image data is available electro nically for review and comparison. FINDINGS: CEREBRUM: The ventricles are normal for age. No evidence of midline shift, mass lesion, hemorrhage or acute in farction. No extra-axial fluid collections are seen. POSTERIOR FOSSA: The cerebellum and brainstem are intact. The 4th ventricle is midline. The cerebellopontine angle i s unremarkable. EXTRACRANIAL: The visualized portion of the orbits is intact. SKULL: The calvaria is intact. No evidence of skull fracture. CONCLUSION: Normal examination. Ruben Ceballos MD on January 09, 2017 at 15:06 Board Certified Radiologist. This report was verified electronically.
[2017-01-09 16:15] VITALS: BP 168/77; PULSE 74; RESP 17; O2SAT 97
[2017-01-09 17:51] VITALS: BP 153/86; PULSE 83; RESP 17; O2SAT 95
[2017-01-09 20:07] VITALS: BP 179/100; PULSE 82; RESP 18; TEMP 98.7; O2SAT 96
[2017-01-09] MEDS: LORazepam 2 MG TAB PO PRN (20:26)
[2017-01-09 22:03] VITALS: BP 157/86; PULSE 61; RESP 18; O2SAT 99
[2017-01-10 02:00] VITALS: BP 150/73; PULSE 71; RESP 19; O2SAT 97
[2017-01-10 06:13] VITALS: BP 163/79; PULSE 76; RESP 18; O2SAT 97
[2017-01-10] MEDS: LORazepam 2 MG TAB PO PRN (06:34)
[2017-01-10 10:37] VITALS: BP 152/83; PULSE 73; RESP 18
[2017-01-10 14:40] VITALS: BP 152/83; TEMP 98.2
== END 2017-01-10 14:55 | disposition home or self-care (01) ==
LOC: NEPC 11:53 → NEPJ 01-10 14:55
DX: F10.10 Alcohol abuse, uncomplicated (principal); B02.9 Zoster without complications; Y90.5 Blood alcohol level of 100-119 mg/100 ml; Z79.899 Other long term (current) drug therapy
CPT/HCPCS: 70450; 80048; 80307; 85025; 99284

== ENCOUNTER 2018-03-22 09:28 | Inpatient (IN) ==
--- NOTE | 2018-03-22 09:54 | ED ---
HPI General Chief Complaint: Psychiatric Symptoms Stated Complaint: Psych eval Time Seen by Provider: 03/22/18 09:40 History of Present Illness HPI Narrative: This patient comes to the ER wanting psychiatric evaluation. He presents voluntarily. He has long-standing history of depression and is on medication for. He says a in the family has made him more depressed than usual and he has vague contemplations of suicidal ideation but no specific plan. He has relapsed and started drinking alcohol again. He was drinking earlier today. He denies any drug use or intentional overdose. He denies any specific physical complaint. Severity of his depression is moderate to severe. Duration 1 week. No alleviating factors. Symptoms exacerbated by family . Related Data Home Medications Medication Instructions Recorded Confirmed carvedilol 6.25 mg PO BID 03/22/18 03/22/18 lisinopril 20 mg PO DAILY 03/22/18 03/22/18 Allergies Allergy/AdvReac Type Severity Reaction Status Date / Time aspirin AdvReac Severe GI upset Verified 03/22/18 09:35 oxaprozin AdvReac Severe GI upset Verified 03/22/18 09:35 Review of Systems ROS: all other systems reviewed are negative PMFSH Medical History Medical History Alcohol abuse (Acute) Depression (Acute) Social History Social History Substance History: No History of Abuse Second Hand Smoke Exposure: No Smoking Status: Never smoker How Often Do You Have a Drink Containing Alcohol: Never Recent Travel in [facility] within the Last 8 Weeks: No Recent Out of Country Travel within the Last 8 Weeks: No Exam Narrative Exam Narrative: GENERAL: Well-nourished, well-developed patient in no apparent distress. SKIN: Focused skin assessment reveals no rash and nodules. Skin is Warm and dry. HEAD: Atraumatic. Normocephalic. EYES: Pupils equal and round. No scleral icterus. No injection or drainage. ENT: No nasal bleeding or discharge. Mucous membranes pink and moist. NECK: Trachea midline. No JVD. CARDIOVASCULAR: Regular rate and rhythm. No murmur appreciated. RESPIRATORY: No accessory muscle use. Clear to auscultation. Breath sounds equal bilaterally. GASTROINTESTINAL: Abdomen soft, non-tender, nondistended. Hepatic and splenic margins not palpable. MUSCULOSKELETAL: No obvious deformities. No clubbing. No cyanosis. No edema. NEUROLOGICAL: Awake and alert. No obvious cranial nerve deficits. Motor grossly within normal limits. Normal speech. PSYCHIATRIC: Depressed mood and flat affect; insight and judgment reduced . Course Initial Documented Vital Signs Temperature 97.3 F L 03/22/18 09:32 Pulse Rate 92 H 03/22/18 09:32 Blood Pressure 165/79 H 03/22/18 09:32 Pulse Oximetry 95 03/22/18 09:32 Last Documented Vital Signs Temperature 97.3 F L 03/22/18 09:32 Pulse Rate 92 H 03/22/18 09:32 Blood Pressure 165/79 H 03/22/18 09:32 Pulse Oximetry 95 03/22/18 09:32 Medical Decision Making MDM Narrative Medical decision making narrative: IV placed and labs sent. I aborted medical clearance workup. I have ordered psychiatric evaluation as that is his desire and reason for coming. Patient is getting some time to sober up. He is medically stable. He is awaiting psychiatric evaluation. 1300 has been seen by psych. will be a psych admit Medical Screen Exam Complete: Yes Emergency Medical Condition: Yes Medical Records Medical records reviewed: Yes I reviewed the patient's medical records. Lab Data Lab results reviewed: Yes I reviewed the patient's lab results. Lab results narrative: Patient is intoxicated but otherwise labs normal Result diagrams: 03/22/18 10:00 03/22/18 10:00 Lab Results 03/22/18 03/22/18 03/22/18 Range/Units 10:00 10:00 11:15 WBC 9.8 (4.0-11.0) th/mm3 RBC 4.80 (4.50-5.90) mil/mm3 Hgb 13.0 (13.0-17.0) gm/dL Hct 40.2 (39.0-51.0) % MCV 83.8 (80.0-100.0) fL MCH 27.0 (27.0-34.0) pg MCHC 32.2 (32.0-36.0) % RDW 16.3 (11.6-17.2) % Plt Count 273 (150-450) th/mm3 MPV 9.2 (7.0-11.0) fL Neut % (Auto) 66.5 (16.0-70.0) % Lymph % (Auto) 24.0 (9.0-44.0) % [place] % (Auto) 7.2 (0.0-8.0) % Eos % (Auto) 0.4 (0.0-4.0) % Baso % (Auto) 1.9 (0.0-2.0) % Neut # (Auto) 6.5 (1.8-7.7) th/mm3 Lymph # (Auto) 2.3 (1.0-4.8) th/mm3 [place] # (Auto) 0.7 (0.0-0.9) th/mm3 Eos # (Auto) 0.0 (0.0-0.4) th/mm3 Baso # (Auto) 0.2 (0.0-0.2) th/mm3 WBC Differential . Differential Comment Auto diff final Sodium 145 (136-145) meq/L Potassium 4.2 (3.5-5.1) meq/L Chloride 111 H (98-107) meq/L Carbon Dioxide 20.4 L (21.0-32.0) meq/L Anion Gap 14 (5-15) meq/L BUN 14 (7-18) mg/dL Creatinine 1.29 (0.60-1.30) mg/dL Estimated GFR 56 L (>89) mL/min Random Glucose 75 (74-106) mg/dL Calcium 8.0 L (8.5-10.1) mg/dL Total Bilirubin 0.3 (0.2-1.0) mg/dL AST 41 H (15-37) U/L ALT 38 (12-78) U/L Alkaline Phosphatase 105 (45-117) U/L Total Protein 7.3 (6.4-8.2) g/dL Albumin 3.7 (3.4-5.0) g/dL TSH 0.762 (0.358-3.740) uIU/mL Urine Opiates Screen Neg (Neg) Ur Barbiturates Screen Neg (Neg) Ur Amphetamines Screen Neg (Neg) U Benzodiazepines Scrn Pos H (Neg) Urine Cocaine Screen Neg (Neg) U Cannabinoids Screen Neg (Neg) Serum Alcohol 253 H (0-5) mg/dL Discharge Plan Discharge Disposition Patient Disposition: 30 Still Patient Discharge Details Diagnosis: Suicidal ideation, Alcohol intoxication Physicians Team ED Provider: Charli Cuevas Primary Care Provider: UNKNOWN, Rxs /Orders / Referrals /Forms Prescriptions: No Action carvedilol 6.25 mg Tablet 6.25 mg PO BID RF: 0 lisinopril 20 mg Tablet 20 mg PO DAILY RF: 0 Status ED Status: Medically Cleared
[2018-03-22 10:35] LABS: Baso # (Auto) 0.2 th/mm3 (0.0-0.2); Baso % (Auto) 1.9 % (0.0-2.0); Eos % (Auto) 0.4 % (0.0-4.0); Hematocrit 40.2 % (39.0-51.0); Lymph # (Auto) 2.3 th/mm3 (1.0-4.8); Mean Corpuscular HGB Conc 32.2 % (32.0-36.0); Mean Corpuscular Volume 83.8 fL (80.0-100.0); Mean Platelet Volume 9.2 fL (7.0-11.0); Mono # (Auto) 0.7 th/mm3 (0.0-0.9); Mono % (Auto) 7.2 % (0.0-8.0); Neut # (Auto) 6.5 th/mm3 (1.8-7.7); Neut % (Auto) 66.5 % (16.0-70.0); Platelet Count 273 th/mm3 (150-450); Red Cell Distribution Width 16.3 % (11.6-17.2); White Blood Count 9.8 th/mm3 (4.0-11.0)
[2018-03-22 10:58] LABS: Albumin 3.7 g/dL (3.4-5.0); Anion Gap 14 meq/L (5-15); Aspartate Aminotransferase 41 U/L (15-37); Blood Urea Nitrogen 14 mg/dL (7-18); Carbon Dioxide 20.4 meq/L (21.0-32.0); Chloride 111 meq/L (98-107); Glomerular Filtration Rate 56 mL/min (>89); Glucose,Random 75 mg/dL (74-106); Potassium 4.2 meq/L (3.5-5.1); Sodium 145 meq/L (136-145)
[2018-03-22 11:01] LABS: Alcohol 253 mg/dL (0-5)
[2018-03-22 11:07] LABS: Alanine Aminotransferase 38 U/L (12-78); Alkaline Phosphatase 105 U/L (45-117); Thyroid Stimulating Hormone 0.762 uIU/mL (0.358-3.740); Total Protein 7.3 g/dL (6.4-8.2)
[2018-03-22 11:33] LABS: Amphetamine Screen,Urine Neg (Neg); Barbiturate Screen,Urine Neg (Neg); Cannabinoid Screen,Urine Neg (Neg); Cocaine Screen,Urine Neg (Neg)
[2018-03-22 11:35] LABS: Opiate Screen,Urine Neg (Neg)
[2018-03-22] MEDS ORDERED: Bisacodyl 10 MG Supp RECTAL PRN (12:57)
[2018-03-22] MEDS ORDERED: Aluminum/Magnesium/Simethacone Susp 30 ML UDC PO PRN (12:57)
[2018-03-22] MEDS ORDERED: Haloperidol Inj 5 MG/ML Ampul IV.PUSH PRN (13:03)
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
--- NOTE | 2018-03-22 15:35 | P.CONIM ---
History of Present Illness Service: [facility] Primary Care Provider: UNKNOWN Family Provider: Javon Daniel MD History of Present Illness: 62-year-old male with a medical history significant for hypertension, alcohol dependence, depression admitted to the psychiatric unit for alcohol abuse relapse, depression. Hospitalist service consulted for assistance with management of hypertension. Patient reports his blood pressure is normally controlled with lisinopril unless he is drinking. He currently denies any symptoms of withdrawals. Last drink was last night. He denies chest pain, shortness of breath. Review of Systems All other systems reviewed negative except as stated in HPI [facility] - History History Provided By: Patient - Medical History Medical History: Medical History (Last Updated 03/22/18 @ 15:32 by Regino Bang MD) Alcohol abuse Depression Hypertension - Family History Family History: Family History (Last Updated 03/22/18 @ 15:33 by Regino Bang MD) Other Family history non-contributory - Social History I have reviewed the patient's Social History: Yes - Tobacco History Second Hand Smoke Exposure: No Tobacco Use In Past 30 Days: No Smoking Status: Never smoker - Alcohol History How Often Do You Have a Drink Containing Alcohol: Never - Substance Use History Substance History: No History of Abuse - Substance Use Type Alcohol Status: Active Route Used: By Mouth Frequency: 3 fifths daily vodka Comment: drinks to keep from feeling sick - Travel History Recent Travel in the [place] Within the Last 8 Weeks: No Recent Travel Out of the Country Within the Last 8 Weeks: No - Immunization History Tetanus Immunization: Unsure Hx Influenza Vaccine This Season: No Medications and Allergies Active Medications: Active Medications Acetaminophen (Tylenol) 650 mg PO Q4H PRN PRN Reason: Pain 1-5 or Temp >101F Al Hydrox/Mg Hydrox/Simethicone (Mag-Al Plus Susp Liq) 30 ml PO Q6H PRN PRN Reason: DYSPEPSIA Al Hydroxide/Mg Hydroxide (Milk Of Magnesia Liq) 30 ml PO Q12H PRN PRN Reason: Mild Constipation Bisacodyl (Dulcolax Supp) 10 mg RECTAL DAILY PRN PRN Reason: SEVERE CONSITIPATION Carvedilol (Coreg) 6.25 mg PO BID TACOS Diphenhydramine HCl (Benadryl) 50 mg PO HS PRN PRN Reason: INSOMNIA Flumazenil (Romazecon Inj) 0.2 mg IV.PUSH Q1M PRN PRN Reason: OVERSEDATION Haloperidol Lactate (Haldol Inj) 1 mg IV.PUSH Q15M PRN PRN Reason: for severe agitation Hydroxyzine HCl (Atarax) 50 mg PO Q6H PRN PRN Reason: ANXIETY Lactulose (Lactulose Liq) 30 ml PO DAILY PRN PRN Reason: SEVERE CONSITIPATION Lisinopril (Prinivil) 20 mg PO DAILY TACOS Lorazepam (Ativan) 1 mg PO Q4H PRN PRN Reason: for CIWA 8-10 Lorazepam (Ativan) 2 mg PO Q2H PRN PRN Reason: for CIWA 11-14 Lorazepam (Ativan Inj) 2 mg IV.PUSH Q2H PRN PRN Reason: for CIWA 11-14 Lorazepam (Ativan Inj) 2 mg IV.PUSH Q1H PRN PRN Reason: for CIWA 15-20 Lorazepam (Ativan Inj) 2 mg IV.PUSH Q15M PRN PRN Reason: for CIWA > 20 Lorazepam (Ativan Inj) 1 mg IV.PUSH Q4H PRN PRN Reason: for CIWA 8-10 Mirtazapine (Remeron) 15 mg PO HS TACOS Senna/Docusate Sodium (Mariah-Colace) 1 tab PO BID TACOS Sennosides (Senokot) 17.2 mg PO Q12H PRN PRN Reason: Moderate Constipation Allergies Allergy/AdvReac Type Severity Reaction Status Date / Time aspirin AdvReac Severe GI upset Verified 03/22/18 09:35 oxaprozin AdvReac Severe GI upset Verified 03/22/18 09:35 Home Medications Medication Instructions Recorded Confirmed Type carvedilol 6.25 mg PO BID 03/22/18 03/22/18 History lisinopril 20 mg PO DAILY 03/22/18 03/22/18 History Exam Vital signs: Vital Signs 03/22/18 09:32 03/22/18 14:18 Temperature 97.3 F L 98.0 F Pulse Rate 92 H 91 H Respiratory Rate 16 Blood Pressure 165/79 H 154/82 H Pulse Oximetry 95 92 L Intake & Output 03/21/18 03/22/18 03/22/18 18:59 06:59 18:59 Output Total 275 / 275 Balance -275 / -275 Weight 89.9 kg Output: Urine 275 / 275 Other: # Voids 1 Weight On Admission 89.9 kg Narrative: GENERAL: This is a well-nourished, well-developed patient, in no apparent distress. CARDIOVASCULAR: Normal rate and regular rhythm without murmurs, gallops, or rubs. RESPIRATORY: Good respiratory efforts. Breath sounds equal and clear to auscultation bilaterally. GASTROINTESTINAL: Abdomen soft, non-tender, non-distended. Normal active bowel sounds MUSCULOSKELETAL: Extremities without cyanosis, or edema. NEURO: Alert & Oriented x4 to person, place, time, situation. Moves all ext x4 PSYCH: Appropriate mood and affect. Results - Labs CBC & Chem 7: 03/22/18 10:00 03/22/18 10:00 Labs: Laboratory Results - last 24 hr 03/22/18 03/22/18 03/22/18 10:00 10:00 11:15 WBC 9.8 RBC 4.80 Hgb 13.0 Hct 40.2 MCV 83.8 MCH 27.0 MCHC 32.2 RDW 16.3 Plt Count 273 MPV 9.2 Neut % (Auto) 66.5 Lymph % (Auto) 24.0 [place] % (Auto) 7.2 Eos % (Auto) 0.4 Baso % (Auto) 1.9 Neut # (Auto) 6.5 Lymph # (Auto) 2.3 [place] # (Auto) 0.7 Eos # (Auto) 0.0 Baso # (Auto) 0.2 WBC Differential . Differential Comment Auto diff final Sodium 145 Potassium 4.2 Chloride 111 H Carbon Dioxide 20.4 L Anion Gap 14 BUN 14 Creatinine 1.29 Estimated GFR 56 L Random Glucose 75 Calcium 8.0 L Total Bilirubin 0.3 AST 41 H ALT 38 Alkaline Phosphatase 105 Total Protein 7.3 Albumin 3.7 TSH 0.762 Urine Opiates Screen Neg Ur Barbiturates Screen Neg Ur Amphetamines Screen Neg U Benzodiazepines Scrn Pos H Urine Cocaine Screen Neg U Cannabinoids Screen Neg Serum Alcohol 253 H Assessment and Plan - Plan 62-year-old male with: Depression in the setting of alcohol abuse: - Management per psychiatry. Hypertension: -Unfortunately his blood pressure will be more difficult to control unless he stopped drinking alcohol. - Continue Coreg and lisinopril. Alcohol dependence: - The patient was counseled. He is planning to return to the alcohol treatment center after discharge. Patient appears to be medically stable. Will sign off. Please call a consult with questions.
[2018-03-22] MEDS: Acetaminophen 325 MG Tablet PO PRN (16:49)
[2018-03-22] MEDS: LORazepam 1 MG Tablet PO PRN ×2 (16:53→22:09)
[2018-03-22] MEDS: Mirtazapine 15 MG Tablet PO SCH (20:44)
[2018-03-22] MEDS: Carvedilol 6.25 MG Tablet PO SCH (20:44)
[2018-03-22] MEDS: Senna/Docusate Sodium 8.6/50 MG Tablet PO SCH (20:45)
[2018-03-23] MEDS: Lisinopril 20 MG Tablet PO SCH (10:15)
[2018-03-23] MEDS: Senna/Docusate Sodium 8.6/50 MG Tablet PO SCH ×2 (10:15→20:47)
[2018-03-23] MEDS: Carvedilol 6.25 MG Tablet PO SCH ×2 (10:15→20:48)
--- NOTE | 2018-03-23 12:57 | P.PNPSY ---
Subjective Remarks: Patient seen today in the [facility] with nurse Felicita and medical student Jaci, chart reviewed, patient compliant medication. Patient did not need an Ativan about 10 PM last night. Patient is making phone calls to find a sober living facility he is contacted [employer], he is also to continue to work with [employer] [facility] the [employer]. He denies suicidality at this time his mood is improved he is showing better affect with good eye contact and is somewhat social on the unit. We discussed with him the fact that we will be continued discharge for him on Sunday 03/25 Review of Systems All other systems reviewed negative except as stated in HPI Mental Status Examination Appearance: Appropriate Consciousness: Alert Orientation: x4 Motor Activity: Normal gait Speech: Unremarkable Language: Adequate Fund of Knowledge: Adequate Attention and Concentration: Adequate Memory: Unremarkable (Fair) Mood: Other (Euthymic to mildly to moderately dysphoric) Affect: Other (Slight increased range and intensity) Thought Process & Associations: Intact Thought Content: Appropriate Hallucination Type: None Delusion Type: None Suicidal Ideation: Yes (Patient would possibly take the suicide pill) Suicidal Plan: Yes Suicidal Intention: Yes (Patient will possibly take the suicide pill) Homicidal Ideation: No Homicidal Plan: No Homicidal Intention: No Insight: Fair Judgment: Impulsive Assessment and Plan - Assessment (1) Adjustment disorder with mixed disturbance of emotions and conduct Code(s): F43.25 - Adjustment disorder with mixed disturbance of emotions and conduct Status: Acute (2) Alcohol abuse with intoxication Code(s): F10.129 - Alcohol abuse with intoxication, unspecified Status: Acute - Plan Plan: Patient's mood is somewhat improving, he is making the effort to find a sober living facility. For now continue treatment Justification for Continued Inpatient Stay: At this time patient would decompensate a place to the lower level of care Discharge Planning: To be determined Request Healthcare Surrogate/Guardian Advocate?: No
--- NOTE | 2018-03-23 15:46 | P.TTN ---
- Patient Problems Problems: 1. Discharge planning 2. Medication compliance 3. Knowledge deficit 4. Lack of coping skills - Progress Toward Goals Provider Present: Dr. Fortunato Grande (Pt. is depressed. Recently relapsed on alcohol and is exploring sober living houses for discharge.) - Documentation Teaching Recipient: Patient
[2018-03-23] MEDS: LORazepam 1 MG Tablet PO PRN (20:47)
[2018-03-23] MEDS: Mirtazapine 15 MG Tablet PO SCH (20:48)
[2018-03-24] MEDS: Acetaminophen 325 MG Tablet PO PRN (08:20)
[2018-03-24] MEDS: Lisinopril 20 MG Tablet PO SCH (08:21)
[2018-03-24] MEDS: Senna/Docusate Sodium 8.6/50 MG Tablet PO SCH ×2 (08:21→21:11)
[2018-03-24] MEDS: Carvedilol 6.25 MG Tablet PO SCH ×2 (08:21→21:11)
[2018-03-24 10:47] VITALS: RESP 18
[2018-03-24] MEDS: LORazepam 1 MG Tablet PO PRN (11:33)
--- NOTE | 2018-03-24 13:17 | P.PNPSY ---
Subjective Remarks: Patient seen and [facility] with floor staff, chart reviewed, patient compliant medications. Patient excited about finding placement tomorrow at [facility]. Patient denies suicidality homicidality voice or visions. For now continue treatment with probable discharge tomorrow to [facility] Review of Systems All other systems reviewed negative except as stated in HPI Mental Status Examination Appearance: Appropriate Consciousness: Alert Orientation: x4 Motor Activity: Normal gait Speech: Unremarkable Language: Adequate Fund of Knowledge: Adequate Attention and Concentration: Adequate Memory: Unremarkable (Fair) Mood: Other (Euthymic to mildly to moderately dysphoric) Affect: Other (Slight increased range and intensity) Thought Process & Associations: Intact Thought Content: Appropriate Hallucination Type: None Delusion Type: None Suicidal Ideation: Yes (Patient would possibly take the suicide pill) Suicidal Plan: Yes Suicidal Intention: Yes (Patient will possibly take the suicide pill) Homicidal Ideation: No Homicidal Plan: No Homicidal Intention: No Insight: Fair Judgment: Impulsive Assessment and Plan - Assessment (1) Adjustment disorder with mixed disturbance of emotions and conduct Code(s): F43.25 - Adjustment disorder with mixed disturbance of emotions and conduct Status: Acute (2) Alcohol abuse with intoxication Code(s): F10.129 - Alcohol abuse with intoxication, unspecified Status: Acute - Plan Plan: Patient's mood continues to improve his depression is lifting he now denies suicidality voices or visions. Consider discharge tomorrow to [facility] Justification for Continued Inpatient Stay: At this time patient would decompensate if not placed in an appropriate level of care Discharge Planning: Discharge tomorrow to [facility] Request Healthcare Surrogate/Guardian Advocate?: No
[2018-03-24 18:12] VITALS: O2SAT 95
[2018-03-24 18:30] VITALS: TEMP 97.4
[2018-03-24] MEDS: Mirtazapine 15 MG Tablet PO SCH (21:10)
[2018-03-25 06:39] VITALS: BP 173/79; PULSE 59
[2018-03-25] MEDS: Carvedilol 6.25 MG Tablet PO SCH (09:00)
[2018-03-25] MEDS: Senna/Docusate Sodium 8.6/50 MG Tablet PO SCH (09:00)
[2018-03-25] MEDS: Lisinopril 20 MG Tablet PO SCH (09:01)
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
--- NOTE | 2018-03-25 13:41 | P.TTN ---
- Patient Problems Problems: 1. Discharge planning 2. Medication compliance 3. Knowledge deficit 4. Lack of coping skills - Progress Toward Goals Provider Present: Dr. Fortunato Grande (Pt. is depressed. Recently relapsed on alcohol and is exploring sober living houses for discharge.), Dr. Natasha Galan Provider Input: Christiane- history of relapse of ETOH use, Anticiated discharge today to sober living Nurse Input: Rafi- Cooperative, history of non compliance with medications, discharging today Psychiatric Counselors Present: Gavino Patricia Jr., RCSWI, Other Group Spec/RT/OT/DING Present: Carola Weaver, ROLANDO, Shree Vincent, OT Group Spec/RT/OT/DING Input: Carola- attends groups, is appropriate in group, follows rules, engages in projects, social, helpful Clinical Coordinator: Celia Watson [facility] - Documentation Teaching Recipient: Patient
== END 2018-03-25 12:25 | disposition home or self-care (01) ==
LOC: NEPD 09:28 → NEDA 13:06 → H260 14:00
PROVIDERS: ADMIT Psychiatry & Neurology Psychiatry; ATTEND Psychiatry & Neurology Psychiatry
DX: F32.9 Major depressive disorder, single episode, unspecified; Y90.8 Blood alcohol level of 240 mg/100 ml or more; Z62.810 Personal history of physical and sexual abuse in childhood; R45.851 Suicidal ideations; F43.25 Adjustment disorder with mixed disturbance of emotions and conduct; I10 Essential (primary) hypertension; Z59.0 Homelessness; F10.229 Alcohol dependence with intoxication, unspecified; Z81.1 Family history of alcohol abuse and dependence